=== PATIENT | female | born 1995 | race Caucasian/White ===

== ENCOUNTER 2025-01-06 07:55 | Emergency (ER) | payer SELFPAY ==
--- NOTE | 2025-01-06 08:44 | ED.GENMED ---
History of Present Illness
General
Chief Complaint: Anxiety
Time Seen by Provider: 01/06/25 08:13
History of Present Illness
History of Present Illness:
29-year-old female with history of methamphetamine abuse presenting to the emergency department for multiple complaints. Patient reports she last used meth yesterday, was dropped off by her partner who was leaving for rehab. Patient notes that she
is not having numbness and tingling in her fingertips and her legs. She also reports has been having swelling to her feet. She also notes daily headaches since starting methamphetamine in October. Reports that she was seen at a hospital in [facility]
[place], had MRI imaging that showed blood Chiari malformation, otherwise no acute issues. Patient was recently in rehab for her methamphetamine, however notes she is not currently interested in rehab. Patient is very anxious, poor historian. Does
also note hallucinations, and picking behavior at her skin. Patient repetitive in her words, repeatedly saying 'I do not know why I am here '. No additional history obtained at this time
Phy Exam
Physical Exam
Physical Exam:
General: Very anxious
HEENT: protecting airway
Neck: appears supple
CV: Normal heart rate, regular rhythm
Resp: No accessory muscle use, no increased work of breathing, lungs clear to auscultation bilaterally
Abd: No distention
Extremities: No deformities, no swelling. Diffuse scabbing and skin picking wounds to skin of extremities
Neuro: alert, no focal neurologic deficit
: deferred
Rectal: deferred
Psych: Anxious
Skin: Intact
Course
Vital Signs
Initial and Last Documented VS:
Initial Vital Signs
Temp Pulse Resp Pulse Ox
98.0 F 122 20 98
01/06/25 08:20 01/06/25 08:20 01/06/25 08:20 01/06/25 08:20
Last Documented Vital Signs
Temp Pulse Resp Pulse Ox
98.0 F 122 20 98
01/06/25 08:20 01/06/25 08:20 02/10/25 08:20 01/06/25 08:20
MDM/Problems Addressed
MDM/Problems Addressed:
29-year-old female with history of methamphetamine abuse presenting for multiple complaints. Vital signs on arrival are normal.
On exam patient is in no acute distress, however is very anxious. Patient is somewhat tangential with her speech, repetitive and a poor historian. She primarily notes daily headaches, tingling to her fingers and her legs, hallucinations and
anxiousness. Do feel that her symptoms can be attributed to methamphetamine abuse. No focal neurologic deficits on exam, afebrile and nontoxic without concern for central neurologic process or infection as etiology to headaches. She does not
currently appear to be a threat to herself or others, however do feel she would benefit from rehabilitation services. Will discuss with patient
09:45 -after multiple attempts to try to get patient to cooperate with [facility], unsuccessful. Patient currently does not want any rehabilitation services. Plan for discharge. Return precautions discussed and patient verbalized understanding
*Critical Care Note
Total Time (30-74mins, 75-104mins- exclusive of procedures): Not Applicable
ED Attending Note
-
Portions of this chart may have been created with voice recognition software.� Occasional wrong word or��sound alike� substitutions may have occurred due to the inherent limitations of voice recognition software.
Discharge Plan
Departure
Patient Disposition: Home (Routine Discharge)
Date of Disposition: 01/06/25
Time of Disposition: 09:46
Patient with high blood pressure during this ER visit?: No
Condition: Good
Discharge Problem:
Methamphetamine abuse, Anxiety
Instructions: Anxiety, Adult (DC), Substance use disorder - ED discharge instructions
Referrals:
NONE,* [Family Provider] -
Activity Restrictions/Additional Instructions:
You were seen in the emergency department for suspected anxiety and drug abuse
You were seen by our addiction team ([facility]), and you were offered rehabilitation services. You declined. Please return to the emergency department if you are having any thoughts of wanting to hurt yourself or others or if you are seeking help
regarding your addiction
Please follow-up closely with your primary care physician.
Return to the emergency department for any worsening of your symptoms, or any development of chest pain, difficulty breathing, abdominal pain with persistent vomiting and inability to tolerate food or liquid by mouth (concern for dehydration),
weakness, headache or confusion, fever greater than 100.4, or any additional symptoms that are concerning to you.
Thank you for choosing [facility].
Interventions
Interventions:
*Risk Screen - Suicide Last Done: 01/06/25 08:20
*Neglect/Abuse Screening Last Done: 01/06/25 08:20
*ED COVID-19 Vaccine History Last Done: 01/06/25 08:20
ED-Psychological Assessment Last Done: 01/06/25 08:24
Discharge Date and Time
Print Language: OMANI
== END 2025-01-06 10:41 | disposition home or self-care (01) ==
LOC: EMR 07:55
PROVIDERS: EMERGENCY PHYSICIAN Student in an Organized Health Care Education/Training Program
DX: F15.10 Other stimulant abuse, uncomplicated (principal); F41.9 Anxiety disorder, unspecified
CPT/HCPCS: 99281

== ENCOUNTER 2025-01-06 16:50 | Emergency (ER) | payer OTHER, SELFPAY ==
--- NOTE | 2025-01-06 18:15 | ED.GENMED ---
History of Present Illness
General
Chief Complaint: Crisis Evaluation
Source: patient
Exam Limitations: altered mental status
Time Seen by Provider: 01/06/25 17:02
Nursing documentation reviewed up to this point in time: agreed with
History of Present Illness
History of Present Illness:
Patient with history of anxiety disorder and PTSD, presents to ED accompanied by police officers, secondary to erratic behaviors noted at outpatient ambulatory center. Of note, patient was seen in ED earlier today after she was dropped off in ED by
her boyfriend, secondary to numbness and tingling sensation. During that visit, patient refused any evaluation/treatment and left ED on her own. This is when patient walked over to [facility], where she exhibited erratic behavior
prompting 911 call to police. Upon arrival in ED, patient is anxious appearing and wants to be discharged to another hospital. However, patient does not have any means or anyone who could drive her at this point.
Review of Systems
Review of Systems
Allergies reviewed?: Yes
Unable to obtain full review of systems at this time due to: due to acuity
All Other Systems: Not applicable
Phy Exam
Physical Exam
Physical Exam:
Physical Exam
General: mild distress, not acutely ill. afebrile
Head: nc/at. eomi
Neck: supple. normal range of motion.
Heart: s1/s2 regular rate and rhythm, no murmur.
Lungs: no acute respiratory distress. clear bilaterally
Abdomen: normal bowel sounds. not tender.
Neuro: alert and oriented. no focal neurological deficits
Skin: no rash
Psychiatric: well kept. anxious appearing
Extremities: no edema. no calf tenderness.
Course
Orders/Labs/Results
Orders:
Orders
01/06/25 18:03
Crisis Consult Urgent
Reason for Consult: psychosis
01/06/25 18:26
ED Special Safety Observation ONCE
Observation level: One to One
01/07/25 02:17
Haloperidol Lactate [Haldol] 5 mg .ROUTE .STK-MED ONE
Haloperidol Lactate [Haldol] 5 mg IM NOW STA
01/07/25 03:24
Haloperidol Lactate [Haldol] 2 mg IM NOW STA
01/07/25 05:24
Lorazepam [Ativan] 2 mg IM NOW STA
01/07/25 07:44
Consult Psychiatry [PSYCHIATRY CONSULT] Urgent
Consulting Provider: Clarence Fuentes
Was physician already notified: Yes
01/07/25 07:46
Test Result ONCE
01/07/25 12:01
Acetaminophen Urgent
Alcohol Urgent
Complete Blood Count/With Diff Urgent
Comprehensive Metabolic Panel Urgent
HCG, Serum Qualitative Screen Urgent
Salicylate Urgent
01/07/25 14:07
Haloperidol [Haldol] 2 mg PO Q6HPRN PRN
Lorazepam [Ativan] 1 mg PO Q4HPRN PRN
01/07/25 18:02
Drug Screen, Urine [Urine Drug Abuse Screen] Urgent
Date Specimen was Collected: 01/07/25
Time Specimen was Collected: 18:00
Fentanyl, Urine Urgent
01/08/25 01:15
Haloperidol Lactate [Haldol] 5 mg .ROUTE .STK-MED ONE
Lorazepam [Ativan] 2 mg .ROUTE .STK-MED ONE
01/08/25 02:49
Lorazepam [Ativan] 2 mg .ROUTE .STK-MED ONE
Lorazepam [Ativan] 2 mg IM NOW STA
01/08/25 13:00
1:1 Observation - Suicide/ Violent Behavior As Directed
Restraints - Violent As Directed
Restraint Type-: Locked-4 point/4 rails
Apply From (date): 01/08/25
Apply from (time): 13:00
Remove (date): 01/08/25
Remove (time): 17:00
01/08/25 13:02
Haloperidol Lactate [Haldol] 5 mg .ROUTE .STK-MED ONE
Haloperidol Lactate [Haldol] 5 mg IM NOW STA
Lorazepam [Ativan] 2 mg .ROUTE .STK-MED ONE
Lorazepam [Ativan] 2 mg IM NOW STA
Abnormal Lab Results
01/07/25 01/07/25
12:01 18:02
WBC 3.7 L 10^3/uL
(4.8-10.8)
MCHC 32.3 L g/dL
(33.0-37.0)
Total Bilirubin 2.1 H mg/dl
(0.2-1.3)
Salicylates < 1.0 L mg/dl
(2.0-20.0)
Acetaminophen < 10 L ug/ml
(10-30)
Ur Amphetamines Screen Positive H
(Negative)
U Methamphetamines Scrn Positive H
(Negative)
U Benzodiazepines Scrn Positive H
(Negative)
01/07/25 12:01
01/07/25 12:01
Vital Signs
Initial and Last Documented VS:
Initial Vital Signs
Pulse Resp Pulse Ox
88 16 100
01/07/25 08:12 01/07/25 08:12 01/07/25 08:12
Last Documented Vital Signs
Temp Pulse Resp BP Pulse Ox
97.6 F 120 18 98/72 98
01/09/25 09:15 01/09/25 09:15 01/09/25 09:15 01/09/25 09:15 01/09/25 09:15
MDM/Problems Addressed
MDM/Problems Addressed:
Initial 302 petition filed by myself, due to concern for patient safety. Pt remains highly agitated with unclear thoughts.
Pt evaluated by [facility]. Awaiting evaluation by tele-psychiatry.
Pt evaluated by tele-psychiatry - recommends in-patient psychiatric evaluation/tx
*Critical Care Note
Total Time (30-74mins, 75-104mins- exclusive of procedures): Not Applicable
ED Attending Note
-
Portions of this chart may have been created with voice recognition software.� Occasional wrong word or��sound alike� substitutions may have occurred due to the inherent limitations of voice recognition software.
Discharge Plan
Departure
Patient Disposition: Psych Facility
Date of Disposition: 01/06/25
Time of Disposition: 22:09
Patient Status:: 302
Discharge Problem:
Manic behavior
Referrals:
NONE,* [Family Provider] -
Interventions
Interventions:
*Risk Screen - Suicide Last Done: 01/06/25 16:52
*Neglect/Abuse Screening Last Done: 01/07/25 01:40
ED- Fall Risk Assessment Last Done: 01/06/25 18:12
*ED COVID-19 Vaccine History Last Done: 01/06/25 23:59
ED-Psychological Assessment Last Done: 01/09/25 10:12
Discharge Date and Time
Print Language: SERBIAN
[2025-01-07] MEDS: HALDOL 2 MG IM (03:24)
[2025-01-07] MEDS: ATIVAN 2 MG IM (05:55)
--- NOTE | 2025-01-07 07:42 | ED.CRISIS ---
ED Crisis Note
ED Crisis Note
Subjective:
29-year-old female here on a 302 for erratic behavior/katy. 302 upheld by telepsych. She did require Haldol and Ativan last night for agitation. She is resting comfortably this morning. She has been refusing lab work and vital signs.
Objective:
Sleeping in bed not in acute distress.
Assessment/Plan:
29-year-old female here on a 302 which has been upheld by telepsychiatry. Crisis working towards placement. Consult into our psychiatry to follow while here in the ER. She is more relaxed this morning had initially been refusing vitals and lab
work but will attempt to get these this morning. Continue to monitor.
[2025-01-07 12:21] LABS: % Basophils 0.5 % (0-2); % Eosinophils 1.6 % (0-6); % Lymphocytes 45.2 % (20.5-51.1); % Monocytes 6.8 % (1.7-9.3); % Neutrophils 45.9 % (42.2-75.2); Absolute Eosinophils 0.1 10^3/uL (0-0.7); Absolute Lymphocytes 1.7 10^3/uL (1.2-3.4); Absolute Monocytes 0.3 10^3/uL (0.1-0.6); Absolute Neutrophils 1.7 10^3/uL (1.4-6.5); Hematocrit 45.2 % (37.0-47.0); Hemoglobin 14.6 g/dL (12.0-16.0); Mean Corp Hgb Conc. 32.3 g/dL (33.0-37.0); Mean Corpuscular Volume 89.7 fL (81.0-99.0); Mean Platelet Volume 9.2 fL (7.4-10.4); Nucleated Red Blood Cells % 0 %; Platelet Count 303 10^3/uL (130-400); Red Blood Cell Count 5.04 10^6/uL (4.20-5.40); Red Cell Dist. Width 14.1 % (11.5-14.5); White Blood Cell Count 3.7 10^3/uL (4.8-10.8)
[2025-01-07 12:29] LABS: HCG, Serum Qualitative Screen Negative
[2025-01-07 12:35] LABS: ALT (SGPT) 17 U/L (0-35); AST (SGOT) 21 U/L (14-36); Acetaminophen < 10 ug/ml (10-30); Albumin 4.5 g/dl (3.5-5.0); Alkaline Phosphatase 64 U/L (38-126); Blood Urea Nitrogen 13 mg/dl (7-17); Calcium 9.5 mg/dl (8.4-10.2); Carbon Dioxide 30 mmol/L (22-30); Chloride 103 mmol/L (98-107); Glucose 91 mg/dl (70-99); Potassium 4.3 mmol/L (3.5-5.1); Salicylate < 1.0 mg/dl (2.0-20.0); Sodium 141 mmol/L (135-145); Total Bilirubin 2.1 mg/dl (0.2-1.3); Total Protein 6.9 g/dl (6.3-8.2); eGFR > 60.00
[2025-01-07 12:39] LABS: Alcohol None Detected
--- NOTE | 2025-01-07 13:56 | CON.MD ---
Consultation - Medical
-
patient seen chart reviewed. discussed w crisis and w dr gonsales. this is the patients third visit to er in two days. she had left in the past but yesterday dr ede Castillo committed her fearing she was unable to care for herself. the patient is very
sedated having received two prn's of haldol one 2 mg and one 5 mg as well as one prn of ativan for agitation. she has been sleeping for much of the day. at this point i was able to rouse her but only momentarily. she said she wants to leave. i
told her she was in no condition to leave as having said that she immediately fell back asleep. i then woke her again and asked if she would consider rehab. she said 'not now...in the future' then promptly fell back asleep. she has not been eating
and drinking today but her bloodwork is essentially normal except for isolated bilirubin inc at 2.1. the hx as described herein is obtained from written records obtained before she was sedated. she has hx substance abuse meth and opiates. the
latter are her drug of choice. last opiates two days ago. she uses meth 'every day'. she has been using continuously since leaving a [facility] in september of 2024. she did tell one staff member she should not have left and is
considering returning.she has taken psych meds in the past suboxone zoloft and zyprexa are listed in the record. she is described as being paranoid and hallucinating when seen last evening by crisis telepsych and er staff. patient did not endorse
si when seen by staff .
past psych hx patient has been rx in rehabs and sober houses. there is hx of in patient admits and out pt rx in the past as well. see above re previous known meds
medical hx labs so far are unremarkable. need to get uds patient w hx of headaches was dx w disc diseasae and arnold chiari malformation
fh not unknown
substance abuse see above
social hx patient has four kids. homeless. sister caring for her kids patient from [place]
mse unable to assess as patient is very sedated fro prn's received here
dx mixed substance dependence including opiates meth f.o underlying mood or psychotic disorder
plan patient remains on a 302 at this point. she is in no condition to leave. needs to be encouraged to give a uds, eat and drink when she awakens hopefully this evening. prn ativan. monitor re opiate wd. she will be reassessed in the am for rehab
vs psych facility vs dc if she refuses and of course only if she is safe to be discharged.
[2025-01-07 18:00] VITALS: BP 139/84
[2025-01-07 18:23] LABS: Amphetamines Positive (Negative); Barbiturates Negative (Negative); Benzodiazepines Positive (Negative); Buprenorphine Negative (Negative); Cocaine Negative (Negative); Marijuana Negative (Negative); Methadone Negative (Negative); Methamphetamines Positive (Negative); Opiates Negative (Negative); Phencyclidine Negative (Negative); Tricyclic Antidepressants Negative (Negative)
[2025-01-07 18:40] LABS: Fentanyl, Urine Negative (Negative)
[2025-01-08] MEDS: ATIVAN 2 MG IM ×2 (02:50→13:12)
--- NOTE | 2025-01-08 11:00 | EDRN ---
Report received, patient in the room eating lunch, 1:1 maintained, waiting on transport to [facility]
--- NOTE | 2025-01-08 12:30 | EDRN ---
Transport here for patient, patient is screaming stating she will not go to [facility], she goes back and forth on wanting to go, she got on the stretcher, then jumped off stating she needed to go to the bathroom, patient in the bathroom refusing to
leave the bathroom, states needs her phone, informed her per hospital policy she is not allowed to have her phone, patient has been informed about being accepted to [facility] and she wants to go to [place], informed her only 2 options are
[place] or being here. Patient screaming and punching wall at this time. Transport states they need to leave as we have been at this trying to get her transported out for about 45min. Transport leaves, patient reports 'fine I will go' so
patient walks out to get on the stretcher in the crisis waiting room, then sits half on it and asks for her phone, when informed she could not have her phone, patient jumps off the stretcher and sits on the ground refusing to move. Transport leaves
at this time and patient refuses to move and begins screaming. Security helps assist patient to the room, however she begins to try to hit and is kicking doors. Patient then at this time is placed in the bed with 4point restraints and medication
is ordered.
--- NOTE | 2025-01-08 13:02 | ED.CRISIS ---
ED Crisis Note
ED Crisis Note
Subjective:
Patient currently with 302
Objective:
Screaming in the room. Standing upright and refusing on the stretcher
Assessment/Plan:
Patient continuing to scream and refusing it on the stretcher. Patient becoming high risk for self injury and injuring staff. Patient requiring 5 mg IM Haldol and 2 mg IM Ativan
[2025-01-08] MEDS: HALDOL 5 MG IM (13:11)
--- NOTE | 2025-01-08 14:36 | EDRN ---
Patient is beginning to calm down at this time, rechecked vital signs which are stable, will continue to monitor and assess for removal of the restraints
--- NOTE | 2025-01-08 15:27 | W.PN.UPDATE ---
Update Note
Progress Note Update
Pt seen, sedated in 4- point restraints, after being very combative/refusing to get on the stretcher for transport to psych facility. Pt was given Haldol 5 mg and Ativan 2 mg IM. Crisis notes indicate signs of psychosis, RIS, paranoid. UDS 01/07 +
for amphetamine/methamphetamine.
Imp: Unspecified psychosis; on 302 for inability to care for self due to psychotic state
Opioid and methamphetamine use
Rec: continue prn Haldol and Ativan. Will assess tomorrow regarding dispo on 302/ need for 303. Will follow
[2025-01-08 17:21] VITALS: BP 107/71
[2025-01-09 09:15] VITALS: BP 98/72
--- NOTE | 2025-01-09 11:52 | W.PN.UPDATE ---
Update Note
Progress Note Update
Pt seen, reviewed with Crisis staff. Pt resting in bed, calm, cooperative. Began to eat some breakfast. No overt signs of psychosis, no agitation. Affect is stable. Speech coherent, circumstantial. Pt has various complaints, blurred or double
vision, visual and tactile hallucinations, states she recently hit her head and has numbness and tingling in extremities. Reports using methamphetamine for the past couple months. Pt states she was in psych facilities in [place] in the past for
depression after losing custody of her children. Pt reportedly has a boyfriend locally, but resides/ has medical coverage in [place]. Pt denies any S/H ideation. UDS + methamphetamine/amphetamine on 01/07/25. Pt asking for her phone, states it helps
distract her. Pt has not required any further doses of Haldol or Ativan, since yesterday afternoon. Pt states Haldol just knocks her out, does not help with reported hallucinations.
Imp: Unspecified psychosis, appears to be resolving. Pt does not present grounds for 303 petition, does not appear to need continued involuntary hospitalization
Opioid and methamphetamine use
Rec: Reviewed dispo with Crisis; pt would best be served by returning to [place] for follow-up care
Pt is psychiatrically cleared for discharge from the 302
== END 2025-01-09 14:58 ==
LOC: EMR 16:50
PROVIDERS: Emergency Medicine; CONSULT PHYSICIAN Psychiatry & Neurology Psychiatry; EMERGENCY PHYSICIAN Emergency Medicine
DX: F30.8 Other manic episodes (principal)
CPT/HCPCS: 99285; 96372 ×5; 80053; 80143; 80179; 80306; 80307; 82077; 84703; 85025

== ENCOUNTER 2025-01-16 15:47 | Emergency (ER) | payer SELFPAY ==
[2025-01-16 15:53] VITALS: BP 146/90
[2025-01-16 16:28] LABS: Amphetamines Positive (Negative); Barbiturates Negative (Negative); Benzodiazepines Negative (Negative); Buprenorphine Negative (Negative); Cocaine Negative (Negative); Marijuana Negative (Negative); Methadone Negative (Negative); Methamphetamines Positive (Negative); Opiates Negative (Negative); Phencyclidine Negative (Negative); Tricyclic Antidepressants Negative (Negative)
[2025-01-16 16:50] LABS: Fentanyl, Urine Negative (Negative)
[2025-01-16 17:13] LABS: % Eosinophils 0.8 % (0-6); % Immature Granulocytes 0.2 % (0-0.5); % Lymphocytes 29.4 % (20.5-51.1); % Monocytes 6.1 % (1.7-9.3); % Neutrophils 62.5 % (42.2-75.2); Absolute Basophils 0.1 10^3/uL (0-0.2); Absolute Lymphocytes 1.5 10^3/uL (1.2-3.4); Absolute Monocytes 0.3 10^3/uL (0.1-0.6); Absolute Neutrophils 3.2 10^3/uL (1.4-6.5); Hematocrit 44.5 % (37.0-47.0); Hemoglobin 14.4 g/dL (12.0-16.0); Mean Corp Hgb Conc. 32.4 g/dL (33.0-37.0); Mean Corpuscular Hgb 29.8 pg (27.0-31.0); Mean Corpuscular Volume 92.1 fL (81.0-99.0); Mean Platelet Volume 8.9 fL (7.4-10.4); Nucleated Red Blood Cells % 0 %; Platelet Count 350 10^3/uL (130-400); Red Blood Cell Count 4.83 10^6/uL (4.20-5.40); White Blood Cell Count 5.1 10^3/uL (4.8-10.8)
--- NOTE | 2025-01-16 17:24 | ED.GENMED ---
History of Present Illness
General
Chief Complaint: Crisis Evaluation
Source: patient and records
Exam Limitations: none
Time Seen by Provider: 01/16/25 16:01
History of Present Illness
History of Present Illness:
29yoF with a history of methamphetamine use, PTSD, and anxiety presenting for a mental health evaluation. Patient states she does not feel right and that something is wrong. She is requesting to be drug tested because she has some lapses in her
memory and is worried that something may have happened. Patient was recently in the ED from 01/06/2025 until 01/09/2025 for manic and erratic behavior. A 302 was initially filed. She was accepted at [facility] and an ambulance
transfer was sent up but patient ultimately refused to go. She was evaluated by psychiatry on 01/09 and was cleared for discharge. She was discharged with plan to go to rehab in [place]. Patient states she has been staying at a hotel room for the
past few days with a male that she barely knows. Last methamphetamine use was 2 days ago. She does not feel like the methamphetamine use is the cause of her symptoms because she was having issues before she started using.
Phy Exam
General Physical Exam
General Presentation: no apparent distress
General Skin: warm and dry
General Habitus: normal
General Mental: anxious and tearful
ENT Exam
ENT Exam: normocephalic
Cardiovascular Exam
Cardiovascular Exam: tachycardia
Pulmonary Exam
Pulmonary Exam: lungs clear, no respiratory distress, no rales, no crackles and no rhonchi
Neurological Exam
Neurological Exam: alert
Skin Exam
Skin Exam: warm/dry and other (Excoriations noted throughout)
Psychiatric Exam
Psychiatric Exam: anxious, paranoia and other (Erratic, flight of ideas, with paranoid thoughts. Patient pacing around exam room and picking at skin. )
Course
Orders/Labs/Results
Orders:
Orders
01/16/25 16:07
Urine Drug Abuse Screen Urgent
Date Specimen was Collected: 01/16/25
Time Specimen was Collected: 15:50
Urine Fentanyl [Fentanyl, Urine] Urgent
01/16/25 16:19
Crisis Consult Urgent
Reason for Consult: eval, paranoia
01/16/25 16:20
Electrocardiogram (*1) Urgent
Reason for Study: Other
Other Reason for Exam: anxiety
EKG- Treatment ONCE
Test Result ONCE
01/16/25 17:00
Complete Blood Count/With Diff Urgent
Comprehensive Metabolic Panel Urgent
HCG, Serum Qualitative Screen Urgent
TSH Reflex To Free T4 Urgent
01/16/25 17:08
Case Management Consult ONCE
Case Management Consult: Discharge Planning
Abnormal Lab Results
01/16/25 01/16/25
16:07 17:00
MCHC 32.4 L g/dL
(33.0-37.0)
Carbon Dioxide 31 H mmol/L
(22-30)
Total Bilirubin 1.8 H mg/dl
(0.2-1.3)
Albumin 5.4 H g/dl
(3.5-5.0)
Ur Amphetamines Screen Positive H
(Negative)
U Methamphetamines Scrn Positive H
(Negative)
01/16/25 17:00
01/16/25 17:00
Vital Signs
Initial and Last Documented VS:
Initial Vital Signs
Temp Pulse Resp BP Pulse Ox
98.3 F 128 18 146/90 100
01/16/25 15:53 01/16/25 15:53 01/16/25 15:53 01/16/25 15:53 01/16/25 15:53
Last Documented Vital Signs
Temp Pulse Resp BP Pulse Ox
98.3 F 128 18 146/90 100
01/16/25 15:53 01/16/25 15:53 01/16/25 15:53 01/16/25 15:53 01/16/25 15:53
MDM/Problems Addressed
Differential Diagnosis Includes:
29yoF here for psychiatric evaluation. Admits to methamphetamine use. Feels that something is wrong and would like to be drug tested. Behavior is erratic and she is pacing around exam room picking at school. +Paranoid thoughts. She denies any SI/HI.
She is tachycardic with otherwise stable vital signs. Differential diagnosis includes but is not limited to: Methamphetamine use, psychosis, electrolyte abnormality
Initial ED plan: Check CBC, CMP, TSH, HCG, EKG, and UDS. Will consult crisis.
*Critical Care Note
Total Time (30-74mins, 75-104mins- exclusive of procedures): Not Applicable
Update Note
Update Note:
UDS is positive for methamphetamines. Crisis attempted to meet with patient at bedside but she became agitated. Patient states that no one is listening to her and she does not feel her issues are related to her drug use. There are no grounds for
302 at this time as she denies any SI/HI and does not appear to be a threat to herself or others. Discussed with crisis team and they are in agreement. Plan to keep patient in the ED overnight to see psychiatry tomorrow for possible placement if
patient desires.
ED Attending Note
-
Portions of this chart may have been created with voice recognition software.� Occasional wrong word or��sound alike� substitutions may have occurred due to the inherent limitations of voice recognition software.
Discharge Plan
Departure
Referrals:
NONE,* [Family Provider] -
Interventions
Interventions:
*Risk Screen - Suicide Last Done: 01/16/25 15:53
*Neglect/Abuse Screening Last Done: 01/16/25 15:53
ED- Fall Risk Assessment Last Done: 01/16/25 17:34
*ED COVID-19 Vaccine History Last Done: 01/16/25 15:53
ED-Psychological Assessment Last Done: 01/16/25 17:33
Discharge Date and Time
Print Language: UKRAINIAN
[2025-01-16 17:35] LABS: HCG, Serum Qualitative Screen Negative
[2025-01-16 17:39] LABS: ALT (SGPT) 17 U/L (0-35); AST (SGOT) 18 U/L (14-36); Albumin 5.4 g/dl (3.5-5.0); Alkaline Phosphatase 64 U/L (38-126); Blood Urea Nitrogen 16 mg/dl (7-17); Calcium 9.6 mg/dl (8.4-10.2); Carbon Dioxide 31 mmol/L (22-30); Chloride 101 mmol/L (98-107); Glucose 79 mg/dl (70-99); Potassium 3.6 mmol/L (3.5-5.1); Sodium 142 mmol/L (135-145); Total Bilirubin 1.8 mg/dl (0.2-1.3); Total Protein 8.1 g/dl (6.3-8.2); eGFR > 60.00
[2025-01-16 18:27] LABS: TSH Reflex To Free T4 1.67 uIU/ml (0.47-4.68)
[2025-01-17 03:53] LABS: Urine Albumin 2+ (Neg - Trace); Urine Bilirubin Negative (Negative); Urine Character Cloudy (Clear); Urine Color Yellow; Urine Glucose Negative (Negative); Urine Ketone Negative (Negative); Urine Leukocyte 1+ (Negative); Urine Nitrite Negative (Negative); Urine Occult Blood 4+ (Negative); Urine Urobilinogen Negative (Neg - 1+)
[2025-01-17 04:16] LABS: Urine Bacteria Few (Negative); Urine Red Blood Cell 16-20 /HPF (0-2)
[2025-01-17 04:17] LABS: Urine Amorphous Seen
--- NOTE | 2025-01-17 06:40 | ED.GENMED ---
History of Present Illness
<Wing Suazo, DO - Last Filed: 01/17/25 06:41>
General
Chief Complaint: Crisis Evaluation
Time Seen by Provider: 01/16/25 16:01
Course
<Wing Suazo, DO - Last Filed: 01/17/25 06:41>
Orders/Labs/Results
Orders:
Orders
01/16/25 16:07
Urinalysis Reflex To Culture Urgent
Date Specimen was Collected: 01/16/25
Time Specimen was Collected: 15:50
Comment: ADD ON
Urine Drug Abuse Screen Urgent
Date Specimen was Collected: 01/16/25
Time Specimen was Collected: 15:50
Urine Fentanyl [Fentanyl, Urine] Urgent
Urine Microscopic Reflex Cult Urgent
Urine Culture Urgent
SHANE Source: U
Specimen Description:
Date Specimen was Collected: 01/16/25
Time Specimen was Collected: 15:50
01/16/25 16:19
Crisis Consult Urgent
Reason for Consult: eval, paranoia
01/16/25 16:20
Electrocardiogram (*1) Urgent
Reason for Study: Other
Other Reason for Exam: anxiety
EKG- Treatment ONCE
Test Result ONCE
01/16/25 17:00
Complete Blood Count/With Diff Urgent
Comprehensive Metabolic Panel Urgent
HCG, Serum Qualitative Screen Urgent
TSH Reflex To Free T4 Urgent
01/16/25 23:15
Consult Notification Routine
Specialty to Notify: Psychiatry
Date consulting provider notified: 01/17/25
Time consulting provider notified: 10:55
Notified:: Service
PSYCHIATRY CONSULT Urgent
Consulting Provider: Emily Riddle
Was physician already notified: No
Reason for consult: anxiety, katy
01/17/25 03:21
Add On- LAB Urgent
Tests Added?: UA with reflux to culture
01/17/25 07:37
Lorazepam [Ativan] 1 mg IM NOW STA
01/17/25 07:38
Lorazepam [Ativan] 2 mg .ROUTE .[facility] ONE
Abnormal Lab Results
01/16/25 01/16/25
16:07 17:00
MCHC 32.4 L g/dL
(33.0-37.0)
Carbon Dioxide 31 H mmol/L
(22-30)
Total Bilirubin 1.8 H mg/dl
(0.2-1.3)
Albumin 5.4 H g/dl
(3.5-5.0)
Ur Occult Blood Reflex 4+ A
(Negative)
Leukocyte Esterase Rfl 1+ A
(Negative)
Urine RBC 16-20 A /HPF
(0-2)
Urine Bacteria (Reflex) Few A
(Negative)
Urine Albumin (Reflex) 2+ A
(Neg - Trace)
Ur Amphetamines Screen Positive H
(Negative)
U Methamphetamines Scrn Positive H
(Negative)
01/16/25 17:00
01/16/25 17:00
Vital Signs
Initial and Last Documented VS:
Initial Vital Signs
Temp Pulse Resp BP Pulse Ox
36.8 C 128 18 146/90 100
01/16/25 15:53 01/16/25 15:53 01/16/25 15:53 01/16/25 15:53 01/16/25 15:53
Last Documented Vital Signs
Temp Pulse Resp BP Pulse Ox
36.8 C 95 14 146/90 97
01/16/25 15:53 01/17/25 09:30 01/17/25 09:30 01/16/25 15:53 01/17/25 09:30
<Marshall Clay, DO - Last Filed: 01/17/25 13:27>
Orders/Labs/Results
Orders:
Orders
01/16/25 16:07
Urinalysis Reflex To Culture Urgent
Date Specimen was Collected: 01/16/25
Time Specimen was Collected: 15:50
Comment: ADD ON
Urine Drug Abuse Screen Urgent
Date Specimen was Collected: 01/16/25
Time Specimen was Collected: 15:50
Urine Fentanyl [Fentanyl, Urine] Urgent
Urine Microscopic Reflex Cult Urgent
Urine Culture Urgent
SHANE Source: U
Specimen Description:
Date Specimen was Collected: 01/16/25
Time Specimen was Collected: 15:50
01/16/25 16:19
Crisis Consult Urgent
Reason for Consult: eval, paranoia
01/16/25 16:20
Electrocardiogram (*1) Urgent
Reason for Study: Other
Other Reason for Exam: anxiety
EKG- Treatment ONCE
Test Result ONCE
01/16/25 17:00
Complete Blood Count/With Diff Urgent
Comprehensive Metabolic Panel Urgent
HCG, Serum Qualitative Screen Urgent
TSH Reflex To Free T4 Urgent
01/16/25 23:15
Consult Notification Routine
Specialty to Notify: Psychiatry
Date consulting provider notified: 01/17/25
Time consulting provider notified: 10:55
Notified:: Service
PSYCHIATRY CONSULT Urgent
Consulting Provider: Emily Riddle
Was physician already notified: No
Reason for consult: anxiety, katy
01/17/25 03:21
Add On- LAB Urgent
Tests Added?: UA with reflux to culture
01/17/25 07:37
Lorazepam [Ativan] 1 mg IM NOW STA
01/17/25 07:38
Lorazepam [Ativan] 2 mg .ROUTE .STK-MED ONE
Abnormal Lab Results
01/16/25 01/16/25
16:07 17:00
MCHC 32.4 L g/dL
(33.0-37.0)
Carbon Dioxide 31 H mmol/L
(22-30)
Total Bilirubin 1.8 H mg/dl
(0.2-1.3)
Albumin 5.4 H g/dl
(3.5-5.0)
Ur Occult Blood Reflex 4+ A
(Negative)
Leukocyte Esterase Rfl 1+ A
(Negative)
Urine RBC 16-20 A /HPF
(0-2)
Urine Bacteria (Reflex) Few A
(Negative)
Urine Albumin (Reflex) 2+ A
(Neg - Trace)
Ur Amphetamines Screen Positive H
(Negative)
U Methamphetamines Scrn Positive H
(Negative)
01/16/25 17:00
01/16/25 17:00
Vital Signs
Initial and Last Documented VS:
Initial Vital Signs
Temp Pulse Resp BP Pulse Ox
36.8 C 128 18 146/90 100
01/16/25 15:53 01/16/25 15:53 01/16/25 15:53 01/16/25 15:53 01/16/25 15:53
Last Documented Vital Signs
Temp Pulse Resp BP Pulse Ox
36.8 C 95 14 146/90 97
01/16/25 15:53 01/17/25 09:30 01/17/25 09:30 01/16/25 15:53 01/17/25 09:30
<Marshall Clay, DO - Last Filed: 01/17/25 13:27>
Update Note
Update Note:
Patient did have increased paranoia earlier this morning. She requested IM benzo which I have ordered. Since then she has been resting comfortably. I did communicate with on-call psychiatrist Dr. Riddle as the overnight ED attending wanted a
psych consult. At 1:30 PM, I evaluated patient at bedside. The patient has been laying on her side, curled up, with only minimal verbal interaction with me. She does tell me that she does have some either pick her up. She does not necessarily
display any evidence of paranoia at this time but she does say that 'I do not feel well'.
ED Attending Note
<Wing Suazo, DO - Last Filed: 01/17/25 06:41>
-
Portions of this chart may have been created with voice recognition software.� Occasional wrong word or��sound alike� substitutions may have occurred due to the inherent limitations of voice recognition software.
Discharge Plan
Departure
Referrals:
NONE,* [Family Provider] -
Interventions
Interventions:
*Risk Screen - Suicide Last Done: 01/16/25 15:53
*Neglect/Abuse Screening Last Done: 01/16/25 15:53
ED- Fall Risk Assessment Last Done: 01/16/25 17:34
*ED COVID-19 Vaccine History Last Done: 01/16/25 15:53
ED-Psychological Assessment Last Done: 01/16/25 17:33
Discharge Date and Time
Print Language: ST LUCI[place]
[2025-01-17] MEDS: ATIVAN 1 MG IM (07:39)
--- NOTE | 2025-01-17 17:18 | ED.CRISIS ---
ED Crisis Note
ED Crisis Note
Subjective:
29-year-old female with history of anxiety, PTSD, methamphetamine abuse has been here in the emergency room for 24 hours�he initially presented requesting mental health evaluations she said she was not feeling right she feels something is wrong she
is having lapses in memory and erratic behavior. She does admit she has been using drugs but has not used drugs for a few days. She was here in the emergency room for a few days from 01/06 until 01/10 for similar bizarre behaviors thought to be at
least in part related to methamphetamine use. There was an attempt to place her psychiatrically and when she finally received the bed she refused psychiatric care. Crisis evaluated patient last night and initial treating team and crisis staff did
not feel there was an indication for involuntary treatment however patient was willing to stay for psychiatric care and so psychiatry consult was placed and she was observed overnight pending psychiatry consultation. Psychiatry evaluated the
patient today and felt that her behavior and symptoms are related to methamphetamine use rather than a primary underlying psychiatric disorder and that she was stable for outpatient treatment. This morning I was asked to reassess the patient she
says that she now wants to be treated for inpatient psychiatric care.
Objective:
Patient is sitting in bed tearful very labile. She denies suicidality, denies being homicidal.
Assessment/Plan:
29-year-old female here with mental health concerns says that she feels her behavior is erratic and that she is going crazy. She feels she is having lapses in memory. She does admit to methamphetamine use but has not used in a few days she says.
She had been cleared by psychiatry but is asking to be reassessed for psychiatric placement. I discussed with crisis and unfortunately they will have difficulty placing voluntarily; while I was working with crisis to attempt placement patient began
saying that she no longer wants to stay and requesting to leave. At this point she does not seem to be a danger to self or others although her behavior is labile and manipulative I do not see any grounds for involuntary commitment at this point in
time. Patient will be released from the emergency room.
Prior to leaving the emergency room I had a discussion with the patient once again. She feels that she would benefit from drug rehab and asked to speak to someone about this. I referred be cares to speak with her and I offered to put her directly
into rehab. Patient says that she does not want to go directly to rehab 'because I have dirty close that have not changed in a few days and I am just not ready.' She says that she wishes to leave the emergency room, she is currently planning to
stay at a hotel. She is waiting for a ride to pick her up and take her to the hotel. She says that if she changes her mind about rehab she will return.
--- NOTE | 2025-01-17 23:07 | W.PN.UPDATE ---
Update Note
Progress Note Update
29 yr old F, seen here about a week ago with similar presentation, presenting with odd/bizarre behavior to ED. Pt with known use of methamphetamine, with reports of sxs consistent with methamphetamine abuse including tactile hallucinations, talking
to self at times, paranoia.
Pt initially seeking psychiatric care, later refusing such once bed found - sleeping in ED under blankets instead.
Attempted to interview pt - she denied SI/HI, no indication of suicidal or aggressive behavior while here. She refused to discuss any disposition options outside of staying in the ED and sleeping, which she indicated is what she preferred to do at
this time. She was not interested in substance use treatment.
To note, pt resides in [place] and has medical coverage in [place], the crisis team did provide pt information as to best available tx options for her based on this.
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
Opioid and methamphetamine use
Pt does not demonstrate any behavior that would warrant an involuntary psychiatric hold or admission - although bizarre she is not behaving in a way that is dangerous to herself or to others. She demonstrates future orientation as she was clear that
she wanted to remain in ED to sleep and charge her phone (observed doing so).
Pt would best be served by returning to [place] for follow-up care, in particular substance abuse tx as it can take many months if not more for psychosis to resolve after methamphetamine abuse is stopped. Pt was also provided information regarding
fci options.
== END 2025-01-17 21:09 | disposition home or self-care (01) ==
LOC: EMR 15:47
PROVIDERS: Emergency Medicine; Physician Assistant; CONSULT PHYSICIAN Psychiatry & Neurology Psychiatry; EMERGENCY PHYSICIAN Student in an Organized Health Care Education/Training Program
DX: F29 Unspecified psychosis not due to a substance or known physiological condition (principal); F41.9 Anxiety disorder, unspecified; F15.10 Other stimulant abuse, uncomplicated
CPT/HCPCS: 96372; 99284; 80053; 80306; 80307; 81003; 81015; 84443; 84703; 85025; 87086; 93005

== ENCOUNTER 2025-01-19 13:09 | Emergency (ER) | payer MEDICAID, SELFPAY ==
[2025-01-19 13:14] VITALS: BP 114/90
--- NOTE | 2025-01-19 13:37 | ED.GENMED ---
History of Present Illness
General
Chief Complaint: Crisis Evaluation
Source: patient and records
Exam Limitations: none
Time Seen by Provider: 01/19/25 13:26
Nursing documentation reviewed up to this point in time: agreed with
History of Present Illness
History of Present Illness:
29-year-old female history of substance abuse possibly mental illness numerous ER visits recently seen by crisis numerous psychiatrists, attempted to place in a mental health facility which the patient ultimately was found not to meet, was living in
a [employer] apparently causing a ruckus sent here denies any recent drug use, she appears to be preoccupied with a substance in a cup which got into her hair which she is worried about, patient had blood work recently, multiple drug screens recently
showed methamphetamine
Phy Exam
Physical Exam
Physical Exam:
Physical Exam
General: 29-year-old female somewhat disheveled
Neck: No jaundice
Lungs: no acute respiratory distress.
Neuro: alert and oriented. no focal neurological deficits
Psychiatric: Disheveled agitated but redirectable
Extremities: no edema.
Course
Orders/Labs/Results
Orders:
Orders
01/19/25 13:27
Urine Drug Abuse Screen Urgent
Date Specimen was Collected: 01/19/25
Time Specimen was Collected: 13:26
Vital Signs
Initial and Last Documented VS:
Initial Vital Signs
Temp Pulse Resp BP Pulse Ox
98.4 F 110 22 114/90 97
01/19/25 13:14 01/19/25 13:14 01/19/25 13:14 01/19/25 13:14 01/19/25 13:14
Last Documented Vital Signs
Temp Pulse Resp BP Pulse Ox
98.4 F 110 22 114/90 97
01/19/25 13:14 01/19/25 13:14 01/19/25 13:14 01/19/25 13:14 01/19/25 13:14
MDM/Problems Addressed
Differential Diagnosis Includes:
Psychosis, medication induced primary psychiatric does not appear to be intact
MDM/Problems Addressed:
Methamphetamine psychosis
Chronic conditions affecting care: Psychiatric illness
Acute Exacerbation and/or Progression of Chronic Illness: Psychiatric illness
*Critical Care Note
Total Time (30-74mins, 75-104mins- exclusive of procedures): Not Applicable
Update Note
Update Note:
Update, prior records reviewed patient appears to be at her new baseline, I do not see any acute issues going on here,
ED Attending Note
-
Portions of this chart may have been created with voice recognition software.� Occasional wrong word or��sound alike� substitutions may have occurred due to the inherent limitations of voice recognition software.
Discharge Plan
Departure
Patient Disposition: Home (Routine Discharge)
Date of Disposition: 01/19/25
Time of Disposition: 13:43
Patient with high blood pressure during this ER visit?: No
Condition: Good
Discharge Problem:
Abuse, drug or alcohol
Instructions: Anxiety, Adult (DC), Drug and Alcohol Abuse Information
Referrals:
UNKNOWN - PT NOT,INTERVIEWE [Family Provider] -
Interventions
Interventions:
*Risk Screen - Suicide Last Done: 01/19/25 13:14
*General Assessment Last Done: 01/19/25 13:14
*Neglect/Abuse Screening Last Done: 01/19/25 13:14
Discharge Date and Time
Print Language: UKRAINIAN
[2025-01-19 13:55] LABS: Amphetamines Positive (Negative); Barbiturates Negative (Negative); Benzodiazepines Positive (Negative); Buprenorphine Negative (Negative); Cocaine Negative (Negative); Marijuana Negative (Negative); Methadone Negative (Negative); Methamphetamines Positive (Negative); Opiates Negative (Negative); Phencyclidine Negative (Negative); Tricyclic Antidepressants Negative (Negative)
[2025-01-19 14:20] LABS: Fentanyl, Urine Negative (Negative)
--- NOTE | 2025-01-19 14:54 | EDRN ---
Kira case management and Dr. Busch at the bedside
--- NOTE | 2025-01-19 15:34 | CM ---
Addendum entered by Kira James RN 01/19/25 18:26:
CM updated CM management team.
Addendum entered by Kira James RN 01/19/25 18:20:
Patient left ER escorted by police.
Addendum entered by Kira James RN 01/19/25 17:59:
CM met with patient in room. CM attempted to unlock patient's phone as she stated that it has not been working. CM was unable to assist with unlocking phone. Due to lack of funding and no ID, patient is unable to receive help from [facility] or [facility].
CM attempted to speak with patient regarding discharge. CM offered [facility] and [address] in. Patient tearfully said that she does not want to stay in [place] and is asking for assistance for a ride to [place] or [facility]. CM denies request
and offered ride assistance to a more local area. Patient refused to agree to any assistance.
Patient further stated that she wants to call her friend Miguel but she does not have the phone number for her friend. Patient requested several times that this CM call Miguel; however, we do not know the phone number. Patient stated that this junior underwriter
is a field case manager and should know how to look up a phone number.
As patient remained disagreeable and would not participate in discharge planning, CM updated bedside RN and charge nurse.
[facility] Police Department was called to assist with discharge/trespass.
Of note, patient was texting a staff nuclear medicine technologist after looking up the staff's phone number. [facility] Police and hospital administration was notified.
Original Note:
CM reviewed medical records. Patient presented from a local motel requesting assistance. Patient stated that she attempted to get help from [facility] and spoke with field case manager. warehouse insulation worker advised that patient would have to present to ER for
assistance .
Patient stated that she would be agreeable to [facility] offering help.
CM spoke with [facility]. warehouse insulation worker stated that they could offer assistance, but required a picture ID. CM attempted to ask patient for a picture ID. Patient stated that she had a picture of it in her phone, but she feels that a friend has locked her
phone and she is unable to open it at this time. She stated that all the passwords have been changed.
CM spoke with patient's father who stated that he would be willing to assist with writing a letter to confirm patient's residency. Father stated that he is afraid of patient and feels very overwhelmed with her behavior.
== END 2025-01-19 18:23 | disposition home or self-care (01) ==
LOC: EMR 13:09
PROVIDERS: EMERGENCY PHYSICIAN Emergency Medicine
DX: F15.10 Other stimulant abuse, uncomplicated (principal); R45.1 Restlessness and agitation; F41.9 Anxiety disorder, unspecified; F43.10 Post-traumatic stress disorder, unspecified; Z59.01 Sheltered homelessness
CPT/HCPCS: 99283; 80306; 80307

== ENCOUNTER 2025-01-19 19:13 | Emergency (ER) | payer MEDICAID, SELFPAY ==
[2025-01-19 19:40] VITALS: BP 125/95
[2025-01-19] MEDS: ATIVAN 2 MG IM (21:55)
--- NOTE | 2025-01-19 22:12 | ED.GENMED ---
History of Present Illness
General
Chief Complaint: Crisis Evaluation
Source: patient and records
Time Seen by Provider: 01/19/25 20:41
History of Present Illness
History of Present Illness:
This patient is a 29-year-old female with a history of depression, polysubstance abuse, who returns again to the emergency department after just leaving. Patient is exhibiting bizarre behavior, agitation, and as she was leaving here told police
that she wishes they would use the gun on her. Patient is very tearful, labile, however will not answer me in her assessment of whether or not she is suicidal or homicidal. Patient denies any physical complaints at this time.
Past History
Past History
ED Past Medical History: None
ED Past Surgical History: None
Social History
Tobacco: Smoker
Drug: Other (Methamphetamine)
Phy Exam
Physical Exam
Physical Exam:
GENERAL: Alert , in no apparent distress, agitated, pacing at times
EYE: pupils equal and reactive
NECK: Supple, no significant adenopathy.
ENT: o/p clr, mmm.
CARDIAC: Regular rate and rhythm .
LUNGS: Clear breath sounds bilaterally, no acute respiratory distress, no wheezes/rales/rhonchi
ABDOMEN: Soft, without focal tenderness, no r/g, no cvat
NEUROLOGICAL: Alert and oriented, grossly nonfocal
SKIN: Warm and dry, skin intact. There are areas where patient appears to have picked at her skin particularly on the upper extremities without secondary infection. Patient also has bruises throughout lower extremities.
MUSCULOSKELETAL: No edema, well perfused.
PSYCH: Agitated, labile, at times bizarre, intermittently cooperative
Course
Orders/Labs/Results
Orders:
Orders
01/19/25 21:41
Olanzapine [Zyprexa] 10 mg IM NOW STA
01/19/25 21:43
Sterile Water [Sterile Water For Injection] 10 ml .ROUTE .[facility] ONE
01/19/25 21:54
Lorazepam [Ativan] 2 mg .ROUTE .STK-MED ONE
Lorazepam [Ativan] 2 mg IM NOW STA
01/19/25 22:22
Olanzapine [Zyprexa] 10 mg .ROUTE .STK-MED ONE
Sterile Water [Sterile Water For Injection] 10 ml .ROUTE .STK-MED ONE
01/19/25 22:24
Olanzapine [Zyprexa] 10 mg IM NOW STA
Vital Signs
Initial and Last Documented VS:
Initial Vital Signs
Pulse BP Pulse Ox
93 125/95 97
01/19/25 19:40 01/19/25 19:40 01/19/25 19:40
Last Documented Vital Signs
Pulse Resp BP Pulse Ox
79 20 129/64 99
01/20/25 08:30 01/20/25 08:30 01/20/25 08:30 01/20/25 08:30
*Critical Care Note
Total Time (30-74mins, 75-104mins- exclusive of procedures): Not Applicable
Update Note
Update Note:
Patient presents to the Emergency Department with __behavioral abnormalities
Number and Complexity of Problems Addressed at the Encounter
� Chronic conditions affecting care:
� Acute Exacerbation and/or Progression of Chronic Illness:
� Differential Diagnosis includes: But not limited to illicit drug use effects, acute psychiatric illness, etc. etc.
Amount and/or Complexity of Data to be Reviewed and Analyzed
� I performed an independent evaluation of and my interpretation is:
EKG:
CT:
Xrays:
Laboratory Studies:
Other:
� Review of other/old records reveals:
� Clinical information was obtained by an independent historian:
� Prescriptions/Medications Considered but not given:
� Further testing considered but not performed:
Risk of Complications and/or Morbidity or Mortality of Patient Management
� Social determinants of health affecting care:
� Discussion with other providers (PCP, Hospitalists, Consultants, etc):
� Escalation of care including admission/observation vs risk of discharge considered: 302 filed by police, pt met with telepsych and it was upheld. 302 completed by me, crisis team currently searching for an inpt facility that
can accept her. Pt increasingly agitated, for safety of pt and staff, I ordered zyprexa, pt declines and requests ativan instead. Ativan ordered. Pt not appears calmer.
ED Attending Note
-
Portions of this chart may have been created with voice recognition software.� Occasional wrong word or��sound alike� substitutions may have occurred due to the inherent limitations of voice recognition software.
Discharge Plan
Departure
Patient Disposition: Psych Facility
Date of Disposition: 01/19/25
Time of Disposition: 22:17
Condition: Fair
Discharge Problem:
Abuse, drug or alcohol, Suicidal ideation
Referrals:
UNKNOWN - PT DOES,NOT KNOW [Family Provider] -
Interventions
Interventions:
*Risk Screen - Suicide Last Done: 01/19/25 19:25
*General Assessment Last Done: 01/19/25 19:25
*Neglect/Abuse Screening Last Done: 01/19/25 19:25
ED- Fall Risk Assessment Last Done: 01/20/25 03:00
*ED COVID-19 Vaccine History Last Done: 01/19/25 19:22
*Nursing Disposition Last Done: 01/20/25 09:34
ED-Psychological Assessment Last Done: 01/19/25 19:30
Discharge Date and Time
Discharge Date/Time: 01/20/25 09:35
Print Language: IRAQI
[2025-01-19] MEDS: ZYPREXA 10 MG IM (22:25)
[2025-01-19 22:41] VITALS: BP 143/61
--- NOTE | 2025-01-20 03:00 | EDRN ---
Report received, patient is sleeping at this time, safe environment maintained with 1:[address], VSS, will continue to monitor
--- NOTE | 2025-01-20 04:47 | EDRN ---
Patient remains asleep and 1:1 maintained, will continue to monitor
[2025-01-20 08:30] VITALS: BP 129/64
== END 2025-01-20 09:35 ==
LOC: EMR 19:13
PROVIDERS: EMERGENCY PHYSICIAN Emergency Medicine
DX: R45.851 Suicidal ideations (principal); R45.1 Restlessness and agitation; F32.A Depression, unspecified; F19.10 Other psychoactive substance abuse, uncomplicated; F17.200 Nicotine dependence, unspecified, uncomplicated
CPT/HCPCS: 99285; 96372 ×2; J2358

== ENCOUNTER 2025-01-30 22:59 | Emergency (ER) | payer MEDICAID, SELFPAY ==
[2025-01-30 23:02] VITALS: BP 140/85
[2025-01-31 02:32] LABS: Amphetamines Positive (Negative); Barbiturates Positive (Negative); Benzodiazepines Positive (Negative)
[2025-01-31 02:33] LABS: Buprenorphine Positive (Negative); Cocaine Negative (Negative); Marijuana Negative (Negative); Methadone Negative (Negative); Methamphetamines Positive (Negative); Opiates Negative (Negative); Phencyclidine Negative (Negative); Tricyclic Antidepressants Negative (Negative)
[2025-01-31 03:30] LABS: Fentanyl, Urine Negative (Negative)
--- NOTE | 2025-01-31 04:27 | ED.GENMED ---
History of Present Illness
General
Chief Complaint: Crisis Evaluation
Source: patient and ambulance crew
Time Seen by Provider: 01/31/25 03:05
Nursing documentation reviewed up to this point in time: agreed with
History of Present Illness
History of Present Illness:
29-year-old female presents via EMS for 'drug screen '. She was found at [facility] and 911 was called after patient was there for over 6 hours. Patient was tearful upon arrival.
Past History
Past History
ED Past Medical History: None
ED Past Surgical History: None
Social History
Tobacco: Smoker
Drug: Other (Methamphetamine)
Review of Systems
Review of Systems
Allergies reviewed?: Yes
All Other Systems: ROS reviewed and negative except as documented in HPI and ROS
Constitutional: Reports sleep disturbance
Psychiatric: Reports anxiety
Phy Exam
General Physical Exam
General Presentation: mild distress
General age: appears older than age
General Skin: warm and dry
General Habitus: frail
General Mental: alert, anxious and tearful
General Hydration: appears well hydrated
Cardiovascular Exam
Cardiovascular Exam: regular rate/rhythm
Pulmonary Exam
Pulmonary Exam: lungs clear and no respiratory distress
Neurological Exam
Neurological Exam: alert and oriented x3
Musculoskeletal Exam
Musculoskeletal Exam: full ROM
Psychiatric Exam
Psychiatric Exam: anxious
Course
Orders/Labs/Results
Orders:
Orders
01/31/25 01:43
Fentanyl, Urine Urgent
Urine Drug Abuse Screen Urgent
Date Specimen was Collected: 01/31/25
Time Specimen was Collected: 01:16
01/31/25 03:32
Crisis Consult Urgent
Reason for Consult: tearful
Abnormal Lab Results
01/31/25
01:43
Ur Buprenorphine Positive H
(Negative)
Ur Barbiturates Screen Positive H
(Negative)
Ur Amphetamines Screen Positive H
(Negative)
U Methamphetamines Scrn Positive H
(Negative)
U Benzodiazepines Scrn Positive H
(Negative)
Vital Signs
Initial and Last Documented VS:
Initial Vital Signs
Temp Pulse Resp BP Pulse Ox
98.3 F 102 18 140/85 100
01/30/25 23:02 01/30/25 23:02 01/30/25 23:02 01/30/25 23:02 01/30/25 23:02
Last Documented Vital Signs
Temp Pulse Resp BP Pulse Ox
98.3 F 102 18 140/85 100
01/30/25 23:02 01/30/25 23:02 01/31/25 01:15 01/30/25 23:02 01/30/25 23:02
*Critical Care Note
Total Time (30-74mins, 75-104mins- exclusive of procedures): Not Applicable
Update Note
Update Note:
Patient seen by crisis.
She denies suicidal or homicidal ideation, intent, or plan.
She told crisis that all she wants is 'meth '.
ED Attending Note
-
Portions of this chart may have been created with voice recognition software.� Occasional wrong word or��sound alike� substitutions may have occurred due to the inherent limitations of voice recognition software.
Discharge Plan
Departure
Patient Disposition: Home (Routine Discharge)
Date of Disposition: 01/31/25
Time of Disposition: 04:31
Patient with high blood pressure during this ER visit?: Yes
Discharge Problem:
Anxiety
Instructions: Anxiety, Adult (DC)
Referrals:
[facility] [Active] -
NONE,* [Family Provider] -
Interventions
Interventions:
*Risk Screen - Suicide Last Done: 01/30/25 23:02
*General Assessment Last Done: 01/30/25 23:02
*Neglect/Abuse Screening Last Done: 01/31/25 03:30
*ED- Fall Risk Assessment Last Done: 01/31/25 03:30
*ED COVID-19 Vaccine History Last Done: 01/30/25 23:02
*Nursing Disposition Last Done: 01/31/25 05:20
ED-Psychological Assessment Last Done: 01/30/25 23:30
Discharge Date and Time
Discharge Date/Time: 01/31/25 05:20
Print Language: UKRAINIAN
== END 2025-01-31 05:20 | disposition home or self-care (01) ==
LOC: EMR 22:59
PROVIDERS: EMERGENCY PHYSICIAN Student in an Organized Health Care Education/Training Program
DX: F41.9 Anxiety disorder, unspecified (principal); F17.200 Nicotine dependence, unspecified, uncomplicated
CPT/HCPCS: 99283; 80306; 80307

== ENCOUNTER 2025-02-05 01:56 | Emergency (ER) | payer MEDICAID, SELFPAY ==
[2025-02-05 02:08] VITALS: BP 152/108
--- NOTE | 2025-02-05 03:10 | ED.GENMED ---
History of Present Illness
General
Chief Complaint: Anxiety
Source: ambulance crew
Time Seen by Provider: 02/05/25 02:53
Nursing documentation reviewed up to this point in time: agreed with
History of Present Illness
History of Present Illness:
Patient refuses to speak with me stating that she already told everything she needed to say to nursing staff. She states that she does not want to be here. She states that she does have burning with urination. She was at [facility] and got into a
domestic verbal altercation. Patient is from [place] and has been here several times in the recent past. She is manic and has been having a manic episode. History is extremely limited as patient is refusing to talk about why she is here. She
is talking incessantly about other stuff but refuses to tell me what she actually needs. She is concurrently on the phone with [facility] stating she wants to go to rehab.
Past History
Past History
ED Past Medical History: Psychiatric
ED Past Surgical History: None
Social History
Tobacco: Smoker
Drug: Other (Methamphetamine)
Personal: Single
Living: homeless
Employment: Not employed
Phy Exam
General Physical Exam
General Presentation: moderate distress
General age: appears older than age
General Skin: dry
General Habitus: poor hygiene
General Mental: anxious, confused, tearful, usual mental status and verbally abusive
General Hydration: appears well hydrated
ENT Exam
ENT Exam: EOMI and swallowing well (Drinking water)
Pulmonary Exam
Pulmonary Exam: no respiratory distress and no cough
Musculoskeletal Exam
Musculoskeletal Exam: full ROM
Skin Exam
Skin Exam: no rash
Psychiatric Exam
Psychiatric Exam: anxious and paranoia
Course
Orders/Labs/Results
Orders:
Orders
02/05/25 03:15
Test Result ONCE
02/05/25 04:05
Fentanyl, Urine Urgent
HCG, Urine Qualitative Screen Urgent
Date Specimen was Collected: 02/05/25
Time Specimen was Collected: 04:03
Urinalysis Reflex To Culture Urgent
Date Specimen was Collected: 02/05/25
Time Specimen was Collected: 04:03
Urine Drug Abuse Screen Urgent
Date Specimen was Collected: 02/05/25
Time Specimen was Collected: 04:03
Urine Microscopic Reflex Cult Urgent
Urine Culture Urgent
SHANE Source: U
Specimen Description:
Date Specimen was Collected: 02/05/25
Time Specimen was Collected: 04:03
02/05/25 05:31
Fosfomycin [Monurol] 3 gm PO ONCE ONE
02/05/25 09:31
PSYCHIATRY CONSULT Urgent
Consulting Provider: Clarence Fuentes
Was physician already notified: Yes
02/05/25 09:36
Crisis Consult Urgent
Reason for Consult: evalk
02/05/25 12:03
Lorazepam [Ativan] 1 mg PO NOW STA
Olanzapine [Zyprexa] 2.5 mg PO NOW STA
02/05/25 12:06
Olanzapine [Zyprexa] 5 mg .ROUTE .STK-MED ONE
Abnormal Lab Results
02/05/25
04:05
Leukocyte Esterase Rfl 2+ A
(Negative)
Urine WBC (Reflex) 50-60 A /HPF
(0-5)
Urine Bacteria (Reflex) Moderate A
(Negative)
Ur Amphetamines Screen Positive H
(Negative)
U Methamphetamines Scrn Positive H
(Negative)
Vital Signs
Initial and Last Documented VS:
Initial Vital Signs
Temp Resp BP
97.8 F 22 152/108
02/05/25 02:08 02/05/25 02:08 02/05/25 02:08
Last Documented Vital Signs
Temp Pulse Resp BP Pulse Ox
97.8 F 103 18 152/108 97
02/05/25 02:08 02/05/25 02:20 02/05/25 07:24 02/05/25 02:08 02/05/25 02:20
*Critical Care Note
Total Time (30-74mins, 75-104mins- exclusive of procedures): Not Applicable
Update Note
Update Note:
Patient still refuses to speak to us. She did set up transportation to [facility] for 8:30 in the morning. She wants to stay here.
If she gives us a urine sample or decides to cooperate I be glad to evaluate her.
ED Attending Note
-
Portions of this chart may have been created with voice recognition software.� Occasional wrong word or��sound alike� substitutions may have occurred due to the inherent limitations of voice recognition software.
Discharge Plan
Departure
Patient Disposition: Psych Facility
Date of Disposition: 02/05/25
Time of Disposition: 06:13
Patient with high blood pressure during this ER visit?: Yes
Condition: Good
Discharge Problem:
Urinary tract infection, Drug abuse
Instructions: Urinary tract infections in adults, Anxiety, Adult (DC), BLOOD PRESSURE
Prescriptions:
No Action
No Current Medications
0
Referrals:
[facility] [Active] -
UNKNOWN - PT DOES,NOT KNOW [Family Provider] -
Activity Restrictions/Additional Instructions:
You received a one-time dose of antibiotic here in the emergency department. There is no current need for further antibiotics. You will be notified at the number you provided if we need to change that medication.
Interventions
Interventions:
*Risk Screen - Suicide Last Done: 02/05/25 03:00
*General Assessment Last Done: 02/05/25 02:50
*Neglect/Abuse Screening Last Done: 02/05/25 10:07
*ED- Fall Risk Assessment Last Done: 02/05/25 10:07
*ED COVID-19 Vaccine History Last Done: 02/05/25 02:50
*Nursing Disposition Last Done: 02/05/25 10:07
ED-Psychological Assessment Last Done: 02/05/25 02:08
Discharge Date and Time
Discharge Date/Time: 02/05/25 10:08
Print Language: UZBEK
[2025-02-05 04:16] LABS: Urine Albumin Negative (Neg - Trace); Urine Bilirubin Negative (Negative); Urine Character Clear (Clear); Urine Color Yellow; Urine Glucose Negative (Negative); Urine Ketone Negative (Negative); Urine Leukocyte 2+ (Negative); Urine Nitrite Negative (Negative); Urine Occult Blood Negative (Negative); Urine Specific Gravity 1.005 (<1.030); Urine Urobilinogen Negative (Neg - 1+)
[2025-02-05 04:26] LABS: HCG, Urine Qualitative Screen Negative
[2025-02-05 04:28] LABS: Urine Squamous Cell >30 /LPF (Few)
[2025-02-05 04:29] LABS: Urine Urothelial Cell >30 /LPF (FEW)
[2025-02-05 04:34] LABS: Urine Bacteria Moderate (Negative); Urine Red Blood Cell 0-2 /HPF (0-2); Urine White Cell 50-60 /HPF (0-5)
[2025-02-05 04:58] LABS: Amphetamines Positive (Negative); Barbiturates Negative (Negative); Benzodiazepines Negative (Negative)
[2025-02-05 04:59] LABS: Buprenorphine Negative (Negative); Cocaine Negative (Negative); Marijuana Negative (Negative); Methadone Negative (Negative); Methamphetamines Positive (Negative); Opiates Negative (Negative); Phencyclidine Negative (Negative); Tricyclic Antidepressants Negative (Negative)
[2025-02-05 05:12] LABS: Fentanyl, Urine Negative (Negative)
[2025-02-05] MEDS: MONUROL 3 GM PO (05:43)
--- NOTE | 2025-02-05 06:41 | ED TECH ---
This UC received and Automated call from Karin/Gwen that her ride was set up and confirmed. [employer] non cdl driver will call when en route to the hospital with details of the vehicle for her pickup.
--- NOTE | 2025-02-05 12:14 | CM ---
Addendum entered by Kira James RN 02/05/25 18:22:
On BLS arrival, patient requested to leave the ER to 'get one last hit'. Patient left the emergency room and entered a vehicle driven by a friend of hers. The vehicle drove around the parking lot. Patient's phone was held by nursing with the
intention that she would return for it after using drugs. She returned to the emergency room and was then brought to the bathroom to change her clothes. Patient remained distracted and disorganized. Patient ultimately was placed on a stretcher in
the ambulance.
CM was notified that patient was requesting to be let of the ambulance. [place] police were called. CM [place] [facility] and updated that patient was being transferred to drug and alcohol treatment. CM advised [place]
Police that patient was just recently used drugs in the hospital parking lot.
Addendum entered by Kira James RN 02/05/25 12:28:
CM discussed transportation options with Acute [facility]. Plan for BLS due to safety concerns.
Original Note:
CM was consulted to assist with transportation. As per RN, patient refused to get into the [employer] that was provided for [facility]. Patient has a history of psychosis and aggressive behavior. Patient will be transported via BLS. CM updated
bedside RN and primer charger.
--- NOTE | 2025-02-05 12:18 | CON.MD ---
Consultation - Medical
-
patient seen chart reviewed. discussed w nursing dr escobedo and cm ms carrasco. the patient is 29 years old. she has been in and out of the er over the month of december and into january. she presents again for help w detox and rehab but on this
occasion as well as others in the past when the rehab is arranged for her she refuses to go. she had a bed at [facility] in [place] but when her transport arrived she refused to go. at this time she is sitting in a chair far from the usual er waiting room
seats and fidgeting constantly her head bent low over her phone and constantly fiddling with the keyboard. she is a poor historian and her thought process is rather disorganized although gave me some info. she has been using amphets daily since sep
2023 prior to that she had had some sobriety [facility] a rehab [facility] in [place]. she has been on psych meds in the past including zyprexa. she has been to many in pt programs but has not
remained sober for long periods. she came to [place] from [place] but spent her early years til age 10 in [facility]. her mother is . her father is supportive to a point. she is somewhat paranoid. she is willing to take some medication to calm
herself and was offered ativan one mg and zyprexa 2.5 mg which she says she is willing to take but seemed to struggle to make any decision including using the rest room which she has been saying she needed for about 20 minutes and has not been able
to go in although we were seated very close to the ladies room. from my prior eval in mid december patient admitted too to the use of opiates. she she has taken suboxone in the past . when seen in dec by this medical technical writer she was experiencing
hallucinations. she denies this today but unclear what is true. she denies si and says she wants help. hx skin picking at times lilliana when high
past psych hx many rehabs and sober houses. she has taken psychotropic meds in the past. also has been on suboxone
medical hx tox + amphets and meth. ua looks infected culture pending patient w hx headaches disc disease and arnold chiari malformation noted healed wounds she said were the result of skin picking which she does when intoxicated
substance abuse see above
fh not known
social hx homeless four children not in her custody born in [facility] father can be supportive mother
mse unable to get consistent cooperation with history. speech thought process disorganized denies si she is paranoid patient alternately apologizes for repeatedly coming to and not cooperating and criticizing her rx here. affect labile did
not overtly verbalize delusion s mood is irritated insight judgment are poor.
dx stimulant intoxication stimulant use disorder opiate use disorder severe other substance abuse also likely r.o underlying mood or psychotic disorder
plan patient is accepted to [facility]. setting up ambulance transport. ativan one mg zyprexa 2.5 mg now.
[2025-02-05] MEDS: ZYPREXA 2.5 MG PO (12:36)
[2025-02-05] MEDS: ATIVAN 1 MG PO (12:36)
== END 2025-02-05 10:08 ==
LOC: EMR 01:56
PROVIDERS: CONSULT PHYSICIAN Psychiatry & Neurology Psychiatry; EMERGENCY PHYSICIAN Student in an Organized Health Care Education/Training Program
DX: F19.10 Other psychoactive substance abuse, uncomplicated (principal); F30.9 Manic episode, unspecified; F41.9 Anxiety disorder, unspecified; F17.200 Nicotine dependence, unspecified, uncomplicated; N39.0 Urinary tract infection, site not specified; Z59.00 Homelessness unspecified
CPT/HCPCS: 99285; 80306; 80307; 81003; 81015; 81025; 87086

== ENCOUNTER 2025-02-05 14:38 | Emergency (ER) | payer MEDICAID, SELFPAY ==
[2025-02-05] VITALS (29 sets, daily range): BP systolic 89–109; BP diastolic 52–82
[2025-02-05] MEDS: ATIVAN 2 MG IM (14:44)
[2025-02-05] MEDS: HALDOL 5 MG IM (14:44)
--- NOTE | 2025-02-05 14:52 | ED.GENMED ---
History of Present Illness
General
Chief Complaint: Crisis Evaluation
Source: patient and police
Exam Limitations: clinical condition
Time Seen by Provider: 02/05/25 14:40
Nursing documentation reviewed up to this point in time: agreed with
History of Present Illness
History of Present Illness:
29-year-old female with history of polysubstance use and anxiety presents to the emergency room intoxicated after methamphetamine use; 302 filed for violent and erratic behavior and apparent suicidal threats. Patient has been in this emergency room
countless times for similar. Was here earlier this morning and rehab for drug use was arranged and she was apparently on her way to rehab in an ambulance. Apparently threatened to hang herself. Police called, found her behaving erratically and
violently and she was brought to the emergency room. Here she was found to have drug paraphernalia and admitted to recent methamphetamine use�unclear how/when. She has been violent and aggressive towards staff here. Cannot participate
meaningfully in history due to erratic and aggressive behavior.
Past History
Past History
ED Past Medical History: Psychiatric
ED Past Surgical History: None
Social History
Tobacco: Smoker
Drug: Other (Methamphetamine)
Personal: Single
Living: homeless
Employment: Not employed
Review of Systems
Review of Systems
Unable to obtain full review of systems at this time due to: due to acuity
All Other Systems: Not applicable
Phy Exam
Physical Exam
Physical Exam:
General: Awake, alert, screaming at the top of her lungs incoherently
Head: Normocephalic, atraumatic
Eyes: Conjunctiva normal
Throat: Airway intact, handling secretions
Neck: Trachea midline, moving through full range of motion
Lungs: Breathing comfortably, no evidence of accessory muscle use
Heart: Tachycardia
Neuro: No gross deficits.
Skin: Patient has scabs scattered on the extremities
Extremities: Warm and well-perfused
Psych: Aggressive behavior, pushing/grabbing police screaming at staff, yelling profanities, not redirectable
Scores
Heart Failure Risk
Heart Failure Risk Score: Not Applicable
Heart Score for Chest Pain Patients
STEMI patient?: Not applicable
Withdrawal Assessment of Alcohol
Withdrawal Assessment Completed?: Not applicable
Course
Orders/Labs/Results
Orders:
Orders
02/05/25 14:40
Haloperidol Lactate [Haldol] 5 mg IM NOW STA
Lorazepam [Ativan] 2 mg IM NOW STA
02/05/25 14:41
Electrocardiogram (*1) Urgent
Reason for Study: QTc Monitoring
EKG- Treatment ONCE
Drug Screen, Urine [Urine Drug Abuse Screen] Urgent
Test Result ONCE
02/05/25 14:45
1:1 Observation - Suicide/ Violent Behavior As Directed
Restraints - Violent As Directed
Restraint Type-: Locked-4 point/4 rails
Apply From (date): 02/05/25
Apply from (time): 14:46
Remove (date): 02/05/25
Remove (time): 18:46
02/05/25 14:46
1:1 Observation - Suicide/ Violent Behavior As Directed
PSYCHIATRY CONSULT Urgent
Consulting Provider: Clarence Fuentes
Was physician already notified: Yes
Crisis Consult Routine
Reason for Consult: 302
02/05/25 15:09
Acetaminophen Urgent
Alcohol Urgent
COVID-19 Antigen Urgent
Source: Nasal Swab
CPK [Creatine Phosphokinase] Urgent
Complete Blood Count/With Diff Urgent
Comprehensive Metabolic Panel Urgent
HCG, Serum Qualitative Screen Urgent
PTT Urgent
Prothrombin Time Urgent
Salicylate Urgent
02/05/25 16:52
Lorazepam [Ativan] 2 mg PO Q6HPRN PRN
02/05/25 16:53
Haloperidol [Haldol] 2 mg PO Q4HPRN PRN
Abnormal Lab Results
02/05/25
15:09
WBC 4.2 L 10^3/uL
(4.8-10.8)
RBC 4.07 L 10^6/uL
(4.20-5.40)
Hgb 11.9 L g/dL
(12.0-16.0)
Hct 36.1 L %
(37.0-47.0)
Absolute Lymphs (auto) 1.1 L 10^3/uL
(1.2-3.4)
Potassium 3.3 L mmol/L
(3.5-5.1)
Carbon Dioxide 19 L mmol/L
(22-30)
Glucose 148 H mg/dl
(70-99)
Salicylates < 1.0 L mg/dl
(2.0-20.0)
Acetaminophen < 10 L ug/ml
(10-30)
02/05/25 15:09
02/05/25 15:09
Vital Signs
Initial and Last Documented VS:
Initial Vital Signs
Temp Pulse Resp BP Pulse Ox
37.2 C 113 18 99/58 100
02/05/25 15:05 02/05/25 15:05 02/05/25 15:05 02/05/25 15:05 02/05/25 15:05
Last Documented Vital Signs
Temp Pulse Resp BP Pulse Ox
37.2 C 105 16 97/66 100
02/05/25 15:05 02/05/25 16:45 02/05/25 16:45 02/05/25 16:40 02/05/25 16:45
MDM/Problems Addressed
Differential Diagnosis Includes:
Drug intoxication, psychosis, katy
MDM/Problems Addressed:
29-year-old female presents apparently intoxicated after methamphetamine use; 302 filed by police upheld by psychiatry for violent and aggressive behavior and suicidal threats. Patient chemically sedated for both her safety and staff safety with
Haldol and Ativan intramuscularly. She was placed in 4 point restraints. One-to-one observation. Will place an IV send labs, UDS, hCG. Crisis involved immediately on patient arrival will work towards placement, psychiatry has been consulted and
involved, upheld 302.
Patient resting comfortably after chemical sedation. Will de-escalate restraints.
Labs reviewed CBC mild anemia no other clinically significant abnormalities. CMP shows mild hypokalemia, marginal acidosis suspect likely from thrashing during restraint. CPK not significantly elevated. Tylenol and salicylate levels negative.
Alcohol level negative. EKG shows acceptable QTc. Continue to monitor pending placement.
Chronic conditions affecting care:
Methamphetamine abuse
*Pulse Oximetry
Patient hypoxic: no
*Critical Care Note
Total Time (30-74mins, 75-104mins- exclusive of procedures): Not Applicable
Data Reviewed
Source: patient, records and police
Patient Management
Social determinants of health affecting care: Substance abuse
Discussion with other providers: Credit Card Associate (Discussed with psychiatry) and Other (Discussed with crisis staff)
Escalation/DeEscalation of care consider admission/obs:
Inpatient psych
ED Attending Note
-
Portions of this chart may have been created with voice recognition software.� Occasional wrong word or��sound alike� substitutions may have occurred due to the inherent limitations of voice recognition software.
Discharge Plan
Departure
Patient Disposition: Psych Facility
Date of Disposition: 02/05/25
Time of Disposition: 14:58
Discharge Problem:
Methamphetamine intoxication, Bizarre behavior, Suicidal ideation
Prescriptions:
No Action
No Current Medications
0
Referrals:
UNKNOWN - PT DOES,NOT KNOW [Family Provider] -
Interventions
Interventions:
*Risk Screen - Suicide Last Done: 02/05/25 14:40
*General Assessment Last Done: 02/05/25 14:40
*Neglect/Abuse Screening Last Done: 02/05/25 14:40
*ED- Fall Risk Assessment Last Done: 02/05/25 14:40
*ED COVID-19 Vaccine History Last Done: 02/05/25 14:40
ED-Psychological Assessment Last Done: 02/05/25 14:51
Discharge Date and Time
Print Language: BENGALI
[2025-02-05 15:32] LABS: APTT 26.1 Sec (23.4-35.0); INR 1.03
[2025-02-05 15:35] LABS: COVID-19 Antigen Negative (Negative)
[2025-02-05 15:39] LABS: HCG, Serum Qualitative Screen Negative
[2025-02-05 15:42] LABS: ALT (SGPT) 24 U/L (0-35); AST (SGOT) 23 U/L (14-36); Acetaminophen < 10 ug/ml (10-30); Albumin 4.4 g/dl (3.5-5.0); Alkaline Phosphatase 67 U/L (38-126); Blood Urea Nitrogen 8 mg/dl (7-17); Calcium 9.4 mg/dl (8.4-10.2); Carbon Dioxide 19 mmol/L (22-30); Chloride 105 mmol/L (98-107); Creatine Phosphokinase 99 U/L (30-135); Glucose 148 mg/dl (70-99); Potassium 3.3 mmol/L (3.5-5.1); Salicylate < 1.0 mg/dl (2.0-20.0); Sodium 138 mmol/L (135-145); Total Bilirubin 1.3 mg/dl (0.2-1.3); Total Protein 6.7 g/dl (6.3-8.2); eGFR > 60.00
[2025-02-05 15:45] LABS: % Basophils 0.7 % (0-2); % Eosinophils 0.5 % (0-6); % Immature Granulocytes 0.2 % (0-0.5); % Lymphocytes 26.3 % (20.5-51.1); % Monocytes 6.5 % (1.7-9.3); % Neutrophils 65.8 % (42.2-75.2); Absolute Lymphocytes 1.1 10^3/uL (1.2-3.4); Absolute Monocytes 0.3 10^3/uL (0.1-0.6); Absolute Neutrophils 2.8 10^3/uL (1.4-6.5); Hematocrit 36.1 % (37.0-47.0); Hemoglobin 11.9 g/dL (12.0-16.0); Mean Corpuscular Hgb 29.2 pg (27.0-31.0); Mean Corpuscular Volume 88.7 fL (81.0-99.0); Mean Platelet Volume 8.9 fL (7.4-10.4); Nucleated Red Blood Cells % 0 %; Platelet Count 323 10^3/uL (130-400); Red Blood Cell Count 4.07 10^6/uL (4.20-5.40); White Blood Cell Count 4.2 10^3/uL (4.8-10.8)
--- NOTE | 2025-02-05 16:49 | W.PN.UPDATE ---
Update Note
Progress Note Update
patient was 302 committed. she was on the way to rehab in an ambulance and told the explosives truck driver she was suicidal and was planning to hang herself. a petition was filed and it was upheld by this creative services writer. upon her return she was agitated and lashing out
and required haldol 5 mg and ativan 2 mg for sedation to protect her from harm to self and others crisis will look for a psych bed for her.
== END 2025-02-06 01:51 ==
LOC: EMR 14:38
PROVIDERS: CONSULT PHYSICIAN Psychiatry & Neurology Psychiatry; EMERGENCY PHYSICIAN Emergency Medicine
DX: F15.129 Other stimulant abuse with intoxication, unspecified (principal); R45.851 Suicidal ideations; E87.6 Hypokalemia; E87.20 Acidosis, unspecified; D64.9 Anemia, unspecified; F17.200 Nicotine dependence, unspecified, uncomplicated; Z78.1 Physical restraint status
CPT/HCPCS: 96372; 99285; 80053; 80143; 80179; 82077; 82550; 84703; 85025; 85610; 85730; 87811; 93005

== ENCOUNTER 2025-02-08 17:48 | Emergency (ER) | payer MEDICAID, SELFPAY ==
[2025-02-08 17:50] VITALS: BP 125/84
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
[2025-02-08 21:50] VITALS: BP 126/89
[2025-02-08] MEDS: HALDOL 5 MG IM (22:50)
[2025-02-08] MEDS: ATIVAN 2 MG IM (22:54)
== END 2025-02-08 23:16 ==
LOC: EMR 17:48
PROVIDERS: EMERGENCY PHYSICIAN Emergency Medicine
DX: T76.21XA Adult sexual abuse, suspected, initial encounter (principal); Y92.9 Unspecified place or not applicable; F15.90 Other stimulant use, unspecified, uncomplicated; F17.200 Nicotine dependence, unspecified, uncomplicated; R45.851 Suicidal ideations
CPT/HCPCS: 99282; 96372

== ENCOUNTER 2025-02-21 18:45 | Emergency (ER) | payer SELFPAY ==
[2025-02-21 18:53] VITALS: BP 147/103
[2025-02-21 19:19] LABS: % Basophils 0.4 % (0-2); % Eosinophils 0.7 % (0-6); % Immature Granulocytes 0.2 % (0-0.5); % Lymphocytes 20.5 % (20.5-51.1); % Monocytes 5.7 % (1.7-9.3); % Neutrophils 72.5 % (42.2-75.2); Absolute Eosinophils 0.1 10^3/uL (0-0.7); Absolute Lymphocytes 1.9 10^3/uL (1.2-3.4); Absolute Monocytes 0.5 10^3/uL (0.1-0.6); Absolute Neutrophils 6.6 10^3/uL (1.4-6.5); Hematocrit 38.3 % (37.0-47.0); Hemoglobin 12.7 g/dL (12.0-16.0); Mean Corp Hgb Conc. 33.2 g/dL (33.0-37.0); Mean Corpuscular Hgb 28.9 pg (27.0-31.0); Mean Platelet Volume 8.8 fL (7.4-10.4); Nucleated Red Blood Cells % 0 %; Platelet Count 453 10^3/uL (130-400); Red Cell Dist. Width 14.5 % (11.5-14.5); White Blood Cell Count 9.1 10^3/uL (4.8-10.8)
[2025-02-21 19:39] LABS: ALT (SGPT) 109 U/L (0-35); AST (SGOT) 27 U/L (14-36); Albumin 5.4 g/dl (3.5-5.0); Alkaline Phosphatase 97 U/L (38-126); Blood Urea Nitrogen 11 mg/dl (7-17); Calcium 10.2 mg/dl (8.4-10.2); Carbon Dioxide 24 mmol/L (22-30); Chloride 102 mmol/L (98-107); Glucose 116 mg/dl (70-99); Potassium 4.3 mmol/L (3.5-5.1); Sodium 140 mmol/L (135-145); Total Bilirubin 1.7 mg/dl (0.2-1.3); Total Protein 8.3 g/dl (6.3-8.2); eGFR > 60.00
--- NOTE | 2025-02-21 21:48 | ED.GENMED ---
History of Present Illness
General
Chief Complaint: Chest Pain
Source: patient
Time Seen by Provider: 02/21/25 21:35
History of Present Illness
History of Present Illness:
29-year-old female presents to the emergency room complaining of twitching and palpitations. Patient endorses using methamphetamines. She states that she does not use it IV but insufflator swallows. She consumes that just prior to coming to the
emergency room. Patient left rehab 3 days ago and almost immediately started using meth again. She does want to speak to someone about rehab again.
Past History
Past History
ED Past Medical History: Psychiatric
ED Past Surgical History: None
Social History
Tobacco: Smoker
Alcohol: None
Drug: Other (Methamphetamine)
Personal: Single
Living: homeless
Employment: Not employed
Phy Exam
Physical Exam
Physical Exam:
General: Awake, Alert, Oriented X3. Tremulous, picking
Vitals: Tachycardic
Head: Atraumatic
Eyes: Pupils equal, EOMI
Throat: Airway intact, no exudates
Neck: Trachea midline
Lungs: Clear and equal b/l
Heart: Regular rate, no murmurs
Abd: Soft, Nontender, No pulsatile mass
Neuro: No focal deficit
Skin: Warm, dry, no rash
Extremities: pulses equal b/l, no edema
Scores
Heart Score for Chest Pain Patients
STEMI patient?: Not applicable
Course
Orders/Labs/Results
Orders:
Orders
02/21/25 18:49
Electrocardiogram (*1) Urgent
Reason for Study: Chest Pain
EKG- Treatment ONCE
02/21/25 19:12
CMP [Comprehensive Metabolic Panel] Urgent
Complete Blood Count/With Diff Urgent
02/21/25 21:45
Lorazepam [Ativan] 2 mg IM NOW STA
02/21/25 23:23
Docusate W/Senna [Senokot-S] 1 tablet PO NOW STA
02/21/25 23:41
Fentanyl, Urine Urgent
Urinalysis Reflex To Culture Urgent
Date Specimen was Collected: 02/21/25
Time Specimen was Collected: 19:01
Urine Drug Abuse Screen Urgent
Date Specimen was Collected: 02/21/25
Time Specimen was Collected: 19:01
Urine Microscopic Reflex Cult Urgent
Urine Culture Urgent
SHANE Source: U
Specimen Description:
Date Specimen was Collected: 02/21/25
Time Specimen was Collected: 19:
Abnormal Lab Results
02/21/25 02/21/25
19:12 23:41
Plt Count 453 H 10^3/uL
(130-400)
Absolute Neuts (auto) 6.6 H 10^3/uL
(1.4-6.5)
Glucose 116 H mg/dl
(70-99)
Total Bilirubin 1.7 H mg/dl
(0.2-1.3)
ALT 109 H U/L
(0-35)
Total Protein 8.3 H g/dl
(6.3-8.2)
Albumin 5.4 H g/dl
(3.5-5.0)
Urine Ketones 3+ A
(Negative)
Ur Occult Blood Reflex 1+ A
(Negative)
Leukocyte Esterase Rfl 1+ A
(Negative)
Urine Bacteria (Reflex) Few A
(Negative)
Urine Albumin (Reflex) 2+ A
(Neg - Trace)
Ur Amphetamines Screen Positive H
(Negative)
U Methamphetamines Scrn Positive H
(Negative)
02/21/25 19:12
02/21/25 19:12
Vital Signs
Initial and Last Documented VS:
Initial Vital Signs
Temp Pulse Resp BP Pulse Ox
98.4 F 137 20 147/103 99
02/21/25 18:53 02/21/25 18:53 02/21/25 18:53 02/21/25 18:53 02/21/25 18:53
Last Documented Vital Signs
Temp Pulse Resp BP Pulse Ox
98.4 F 128 24 124/68 98
02/21/25 18:53 02/21/25 21:55 02/21/25 21:55 02/21/25 21:55 02/21/25 21:55
*EKG
Interpretation: abnormal
Heart Rate: 132
Rate: tachycardiac
Rhythm: sinus tachycardia
[place]: normal axis
Interval: normal interval
QRS Pattern: normal QRS
Ischemia: no ischemia
*Form Grader Operator Interpretation
Rate: tachycardiac
Interpretation: abnormal
Heart Rate: 132
Rhythm: sinus tachycardia
*Critical Care Note
Total Time (30-74mins, 75-104mins- exclusive of procedures): Not Applicable
ED Attending Note
-
Portions of this chart may have been created with voice recognition software.� Occasional wrong word or��sound alike� substitutions may have occurred due to the inherent limitations of voice recognition software.
Discharge Plan
Departure
Patient Disposition: Home (Routine Discharge)
Date of Disposition: 02/21/25
Time of Disposition: 23:22
Patient with high blood pressure during this ER visit?: No
Discharge Problem:
Methamphetamine intoxication
Instructions: Methamphetamine
Prescriptions:
No Action
No Current Medications
0
Referrals:
UNKNOWN - PT DOES,NOT KNOW [Family Provider] -
Interventions
Interventions:
*Risk Screen - Suicide Last Done: 02/22/25 00:20
*General Assessment Last Done: 02/21/25 21:52
*ED- Fall Risk Assessment Last Done: 02/21/25 21:52
*ED COVID-19 Vaccine History Last Done: 02/21/25 18:53
*Nursing Disposition Last Done: 02/22/25 00:20
ED- Cardiac Assessment Last Done: 02/21/25 22:58
ED-Psychological Assessment Last Done: 02/21/25 22:58
Discharge Date and Time
Discharge Date/Time: 02/22/25 00:20
Print Language: KOSOVAN
[2025-02-21 21:55] VITALS: BP 124/68
[2025-02-21] MEDS: ATIVAN 2 MG IM (22:01)
[2025-02-21] MEDS: SENOKOT-S 1 TABLET PO (23:35)
[2025-02-21 23:55] LABS: Urine Albumin 2+ (Neg - Trace); Urine Bilirubin Negative (Negative); Urine Character Cloudy (Clear); Urine Color Yellow; Urine Glucose Negative (Negative); Urine Ketone 3+ (Negative); Urine Leukocyte 1+ (Negative); Urine Nitrite Negative (Negative); Urine Occult Blood 1+ (Negative); Urine Specific Gravity 1.015 (<1.030); Urine Urobilinogen 1+ (Neg - 1+)
[2025-02-22 00:04] LABS: Urine Amorphous Seen
[2025-02-22 00:05] LABS: Urine Bacteria Few (Negative); Urine Red Blood Cell 0-2 /HPF (0-2)
[2025-02-22 00:06] LABS: Amphetamines Positive (Negative); Barbiturates Negative (Negative); Benzodiazepines Negative (Negative); Buprenorphine Negative (Negative); Cocaine Negative (Negative); Marijuana Negative (Negative); Methadone Negative (Negative); Methamphetamines Positive (Negative); Opiates Negative (Negative); Phencyclidine Negative (Negative); Tricyclic Antidepressants Negative (Negative)
[2025-02-22 00:18] LABS: Fentanyl, Urine Negative (Negative)
== END 2025-02-22 00:20 | disposition home or self-care (01) ==
LOC: EMR 18:45
PROVIDERS: EMERGENCY PHYSICIAN Emergency Medicine
DX: F15.129 Other stimulant abuse with intoxication, unspecified (principal); F17.200 Nicotine dependence, unspecified, uncomplicated
CPT/HCPCS: 99284; 96372; 80053; 80306; 80307; 81003; 81015; 85025; 87086; 93005

== ENCOUNTER 2025-02-22 11:41 | Emergency (ER) | payer MEDICAID, SELFPAY ==
[2025-02-22 11:45] VITALS: BP 152/94
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
[2025-02-22 12:13] LABS: Glucose - Point of Care 96 mg/dl (70-99)
[2025-02-22 12:14] VITALS: BP 129/88
--- NOTE | 2025-02-22 13:28 | EDRN ---
1317 I spoke with LAMIN kaba, and a INFUSION THERAPY NURSE will be at at approximately 1430.
[2025-02-22 14:22] VITALS: BP 133/97
[2025-02-22] MEDS: ATIVAN 1 MG PO (16:41)
[2025-02-22 17:02] LABS: Amphetamines Negative (Negative); Barbiturates Negative (Negative); Benzodiazepines Positive (Negative); Buprenorphine Negative (Negative); Cocaine Negative (Negative); Marijuana Negative (Negative); Methadone Negative (Negative); Methamphetamines Positive (Negative); Opiates Negative (Negative); Phencyclidine Negative (Negative); Tricyclic Antidepressants Negative (Negative)
[2025-02-22 17:13] LABS: Fentanyl, Urine Positive (Negative)
[2025-02-22 17:52] LABS: HCG, Urine Qualitative Screen Negative
[2025-02-22 18:29] VITALS: BP 124/86
== END 2025-02-22 18:31 | disposition home or self-care (01) ==
LOC: EMR 11:41
PROVIDERS: EMERGENCY PHYSICIAN Student in an Organized Health Care Education/Training Program
DX: Z04.41 Encounter for examination and observation following alleged adult rape (principal); F17.200 Nicotine dependence, unspecified, uncomplicated; F15.10 Other stimulant abuse, uncomplicated
CPT/HCPCS: 99283; 80306; 80307; 81025; 82962

== ENCOUNTER 2025-02-23 03:23 | Emergency (ER) | payer MEDICAID, SELFPAY ==
[2025-02-23 03:26] VITALS: BP 122/90
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
== END 2025-02-23 08:33 ==
LOC: EMR 03:23
PROVIDERS: EMERGENCY PHYSICIAN Emergency Medicine
DX: R39.198 Other difficulties with micturition (principal); F17.200 Nicotine dependence, unspecified, uncomplicated; Z59.00 Homelessness unspecified
CPT/HCPCS: 99282

== ENCOUNTER 2025-05-28 07:10 | Emergency (ER) | payer OTHER, SELFPAY ==
[2025-05-28 07:22] VITALS: BP 116/72
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
--- NOTE | 2025-05-28 07:45 | EDRN ---
Pt brought to ER by Ofelia GARNICA d/t erratic behaviors. Pt admitted to this RN using meth last night and was uncooperative with changing into paper scrubs, had difficulty following commands and expressed paranoia. Pt admitted to this RN that she
just wanted to be arrested so that she can get sober. This RN asked patient if she wanted to talk to [facility] for help with rehab and becoming sober. Pt denied wanting to speak with anyone for help and stated again she just wanted to go to care home.
Ofelia GARNICA reports that patient was picked up on a warrant, but was acting erratic and that they are filing a 302'.
Pt refusing to have assessment performed by Dr. Badillo, was argumentative and not following commands. Pt then raised her voice at Dr. Badillo and this RN, stating that she did not want to be touched. Dr. Badillo and this RN left crisis room.
== END 2025-05-28 08:55 ==
LOC: EMR 07:10
PROVIDERS: EMERGENCY PHYSICIAN Emergency Medicine
DX: F15.129 Other stimulant abuse with intoxication, unspecified (principal); Z60.8 Other problems related to social environment; Z65.3 Problems related to other legal circumstances; Z59.00 Homelessness unspecified; F41.9 Anxiety disorder, unspecified; F17.200 Nicotine dependence, unspecified, uncomplicated
CPT/HCPCS: 99282